=== PATIENT | male | born 2000 | race Two or more races ===

== ENCOUNTER 2024-10-30 23:07 | Inpatient (IN) | payer OTHER, SELFPAY ==
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
[2024-10-30 23:33] VITALS: BP 130/80; BP 130/88; PULSE 59; PULSE 75; RESP 18; TEMP 37.1; O2SAT 100; O2SAT 98; BMI 28.7
--- NOTE | 2024-10-30 23:46 | MHC.EDTECH ---
changed over pt, Belongings are in gene port shelf 1
[2024-10-30 23:57] LABS: MANUAL DIFF FLAG NO
[2024-10-30 23:58] LABS: Basophils Percent Auto 0.4 % (0-2); Eosinophils Absolute Auto 0.1 X10*3/uL (0.0-0.4); Eosinophils Percent Auto 0.9 % (0-4); Hematocrit 45.7 % (42.0-52.0); Hemoglobin 15.9 g/dl (14.0-18.0); Imm Gran Abs Auto 0.02 X10*3/uL (0.00-0.03); Imm Gran Pct Auto 0.3 % (0.0-0.4); Lymphocytes Absolute Auto 2.6 X10*3/uL (1.2-4.9); Lymphocytes Percent Auto 37.6 % (20-40); Mean Corpuscular HGB Conc 34.8 g/dl (31.0-36.0); Mean Corpuscular Hemoglobin 31.9 pg (27.0-33.0); Mean Corpuscular Volume 91.8 fL (80.0-98.0); Mean Platelet Volume 9.2 fL (9.4-12.4); Monocytes Absolute Auto 0.5 X10*3/uL (0.1-1.2); Monocytes Percent Auto 6.5 % (2-11); Neutrophils Absolute Auto 3.7 x10*3/uL (2.0-8.3); Neutrophils Percent Auto 54.3 % (45-73); Platelet Count 253 X10*3/uL (160-400); Red Blood Count 4.98 X10*6/uL (4.60-5.80); Red Cell Distribution Width 13.2 % (11.0-16.0); White Blood Count 6.9 X10*3/uL (4.8-10.8)
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
--- NOTE | 2024-10-31 | ECG_ITS ---
Test Reason : ?ARRHYTHMIA Blood Pressure : */* mmHG Vent. Rate : 64 BPM Atrial Rate : 64 BPM P-R Int : 128 ms QRS Dur : 98 ms QT Int : 380 ms P-R-T Axes : 38 39 19 degrees QTcB Int : 392 ms Normal sinus rhythm Normal ECG No previous ECGs available Referred By: Daron Byers Electronically Signed By: Chon Mojica
--- NOTE | 2024-10-31 | PC.NURSE ---
provided ice pack to presumaably sore area of r hand, dorsal surface
[2024-10-31 00:13] LABS: Amphetamine Screen Urine Not Detected (Not Detect); Barbiturates, Urine Not Detected (Not Detect); Benzodiazepines Screen Urine Not Detected (Not Detect); Buprenorphine Scr Not Detected (Not Detect); Cannabinoid Screen Urine POSITIVE (Not Detect); Cocaine Screen Urine Not Detected (Not Detect); Fentanyl, urine Not Detected (Not Detect); Methadone Screen, Urine Not Detected (Not Detect); Opiate Screen Urine Not Detected (Not Detect); Oxycodone Screen Urine Not Detected (Not Detect); Phencyclidine Screen Urine Not Detected (Not Detect)
[2024-10-31 00:14] LABS: Alanine Aminotransferase 48 U/L (0-40); Albumin Level 4.5 g/dL (3.5-5.0); Alkaline Phosphatase 58 U/L (39-117); Anion Gap 14 (12-20); Aspartate Amino Transferase 40 U/L (5-37); Bilirubin Total 0.3 mg/dL (0.0-1.0); Blood Urea Nitrogen 11 mg/dL (9-16); Calcium 9.1 mg/dL (8.4-10.2); Carbon Dioxide 24 mmol/L (22-29); Chloride 108 mmol/L (96-108); Creatinine Clr Calc Pharmacy 196.7; Estimated Glomerular Filt Rate > 60; Ethanol 109 mg/dL; Glucose Random 104 mg/dL (60-115); Potassium 4.2 mmol/L (3.3-5.1); Sodium 142 mmol/L (135-145); Total Protein 7.6 g/dL (6.5-8.0)
[2024-10-31 00:14] LABS: Acetaminophen LAB < 3 mcg/mL (<30); Salicylate < 5.0 mg/dL (15-30)
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
[2024-10-31 05:42] VITALS: BP 120/66; PULSE 81; RESP 16; TEMP 36.8; O2SAT 98
--- OUTSIDE RECORDS SUMMARY | 2024-10-31 06:43 | XMS_ITS | Clinical Summary ---
Author Organization [facility] Address [address] [place] [id number] Care Team Providers Care Business Excellence Leader Name Role Phone Pcp, No Primary Care Provider Unavailabl e Allergies No known active allergies Social History Tobacco Use Types Packs/Day Years Used Date Smoking Tobacco: Never Assessed Sex and Gender Information Value Date Recorded Sex Assigned at Not on file Legal Sex Male 5:09 PM EDT Gender Identity Not on file Sexual Orientation Not on file Last Filed Vital Signs Vital Sign Reading Time Taken Comments Blood Pressure 132/79 01/11/2019 5:15 PM EDT Pulse 78 01/11/2019 5:15 PM EDT Temperature 37.4 ??C (99.4 ??F) 01/11/2019 5:15 PM ED T Respiratory Rate 18 01/11/2019 5:15 PM EDT Oxygen Saturation 98% 01/11/2019 5:15 PM EDT Inhaled Oxygen Concentration - - Weight - - Height - - Body Mass Index - - Plan of Treatment Health Maintenance Due Date Last Done Comments Hepatitis C Virus Screening 1998 HIV Screening 11/15/2011 HPV Vaccines (1 - Male 3-dos e series) 2013 DTaP/Tdap/Td Vaccines (1 - Tdap) 2017 Hepatitis B Vaccines (1 of 3 - 19+ 3-dose series) 2017 COVID-19 Vaccine ( - 2023-2 5 season) 2024 Pneumococcal Vaccine: Pediat madelin (0-5 Years) and At-Risk Patients (6 to 49 Years) Aged Out No longer eligible b ased on patient's age to complete this topic Care Teams Business Excellence Leader Relationship Specialty Start Date End Date Pcp, No [address] [place] [address] PCP - General 01/11/19
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
[2024-10-31] MEDS: Bacitracin Oint 0.9 GM PACKET 1 APPL TOPICAL (06:58)
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
--- NOTE | 2024-10-31 08:05 | PC.NURSE ---
Pt able to verbally confirm home medications, he reports he last took the medications about two weeks ago
[2024-10-31 08:11] LABS: Appearance Urine Clear; Color Urine Yellow; Glucose Urine UA Negative (Negative); Leukocyte Esterase Urine Negative (Negative); Nitrite Urine Negative (Negative); Urine Blood Negative (Negative); Urine Ketones Negative (Negative); Urine Protein Negative (Neg-Trace)
--- NOTE | 2024-10-31 08:25 | PC.NURSE ---
Pt requesting to be discharged to [facility]NOTE 2] so he can complete homework while being treated. This RN explained to patient that he requires a higher level of care at this time, pt somewhat understanding but continues to remain frustrated, requesting to speak with CARE team clinician. CARE team aware
[2024-10-31] MEDS: Sertraline HCL 25 MG TABLET PO (10:48)
[2024-10-31] MEDS: ALPRAZolam 0.25 MG TABLET PO (10:48)
[2024-10-31] MEDS: Dicyclomine HCl 10 MG CAPSULE PO ×2 (11:24→19:15)
--- NOTE | 2024-10-31 14:35 | PHA.MEDREC ---
Addendum entered by Brianne Bradshaw RPh 10/31/24 14:37: Med rec was reviewed by [facility]. Original Note: Pharmacy Consult ? Medication Reconciliation Pharmacy reviewed med rec done by nursing. Claims match what is confirmed.
[2024-10-31 14:41] VITALS: BP 142/97; PULSE 72; RESP 18; TEMP 37.2; O2SAT 97
[2024-10-31 15:11] VITALS: BMI 27.5
[2024-10-31] MEDS: cloNIDine HCL 0.1 MG TABLET PO ×2 (15:35→21:08)
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
--- NOTE | 2024-10-31 18:48 | PC.NURSE ---
Omid declined to write down contacts when offered.
[2024-10-31 19:51] VITALS: BP 109/53; PULSE 58; RESP 16; TEMP 36.4; O2SAT 98
[2024-10-31 20:45] VITALS: BP 121/61; PULSE 53; RESP 16; TEMP 36.6; O2SAT 98
[2024-11-01] MEDS: Dicyclomine HCl 10 MG CAPSULE PO ×4 (07:28→22:15)
[2024-11-01 08:00] VITALS: BP 138/69; PULSE 63; RESP 16; TEMP 36.6; O2SAT 98
[2024-11-01 08:04] LABS: Estimated Average Glucose 103 mg/dL; Hemoglobin A1C 134.8716 umol/L; Hemoglobin A1c % 5.2 % (<6.0); Total Hemoglobin (HGBA1C) 4111.2944 umol/L
[2024-11-01 08:08] LABS: Cholesterol 157 mg/dL (<200); HDL Cholesterol 60 mg/dL (>40); LDL Cholesterol Calculated 73 mg/dL (<100); Triglycerides 124 mg/dL (<150)
[2024-11-01 08:25] LABS: Free T4 (Free Thyroxine) 1.08 ng/dL (0.71-1.85); Thyroid Stimulating Hormone 1.19 uIU/mL (0.32-4.0)
[2024-11-01] MEDS: Sertraline HCL 50 MG TABLET PO (08:25)
[2024-11-01] MEDS: cloNIDine HCL 0.1 MG TABLET PO ×3 (08:25→22:15)
[2024-11-01 08:34] LABS: Folate 13.4 ng/mL (> or = 4.0); Vitamin B12 326 pg/mL (200-900)
[2024-11-01] MEDS: Magnesium Hydrox/Alum Hydrox 30 ML ORAL.SUSP PO (08:35)
[2024-11-01 12:00] VITALS: BP 130/61; PULSE 70; RESP 18; TEMP 36.8; O2SAT 99
--- NOTE | 2024-11-01 15:16 | HO.PSYCHPN ---
Subjective Subjective Date of Service: 11/01/24 Reason For Visit: Mood Disorder Interim History: Active on unit, social with peers. rapid speech. focused on discharge and his courses at college. Pt reports he is feeling less anxious today. attending groups. denies SI/HI/VH/AH. denies withdrawal symptoms. Continue current tx plan. Medication Compliance: Yes Side effects from medications: No Attending Groups: Yes Mental Status Exam Mental Status Exam Patient Appearance: Well Grooomed Patient Orientation: Person, Place, Time and Situation Level of Consciousness: Awake and Alert Patient Behavior: Appropriate, Cooperative and Good Eye Contact Mood Description: Anxious Affect Description: Anxious Ability to Follow Directions: Good Speech Pattern: Clear and Rapid Memory Description: Intact Hallucinations: None Delusions: Not Present Thought Process: Intact and Goal Oriented Thought Content: positive for Intact Diagnostics Vital Signs (24Hr): Vital Signs - 24 hr 10/31/24 19:51 10/31/24 20:45 11/01/24 08:00 Temperature 97.6 F 97.8 F 98 F Pulse Rate 58 53 63 Respiratory Rate 16 16 16 Blood Pressure 109/53 L 121/61 138/69 Pulse Oximetry 98 98 98 Oxygen Delivery Method Room Air Room Air Room Air 11/01/24 12:00 Temperature 98.2 F Pulse Rate 70 Respiratory Rate 18 Blood Pressure 130/61 Pulse Oximetry 99 Oxygen Delivery Method Room Air BMI result Body Mass Index 27.5 Labs 10/30/24 23:50 10/30/24 23:50 Labs: Laboratory Results - last 48 hr 10/30/24 10/30/24 11/01/24 23:50 23:51 07:30 WBC 6.9 RBC 4.98 Hgb 15.9 Hct 45.7 MCV 91.8 MCH 31.9 MCHC 34.8 RDW 13.2 Plt Count 253 MPV 9.2 L Immature Gran % (Auto) 0.3 Neut % (Auto) 54.3 Lymph % (Auto) 37.6 [place] % (Auto) 6.5 Eos % (Auto) 0.9 Baso % (Auto) 0.4 Lymph # (Auto) 2.6 [place] # (Auto) 0.5 Eos # (Auto) 0.1 Baso # (Auto) 0.0 Abs Immat Gran (auto) 0.02 Absolute Neuts (auto) 3.7 Absolute Nucleated RBC 0.000 Nucleated RBC % (auto) 0.0 Sodium 142 Potassium 4.2 Chloride 108 Carbon Dioxide 24 Anion Gap 14 BUN 11 Creatinine 0.65 Estim Creat Clear Calc 196.7 Estimated GFR > 60 Random Glucose 104 Estimat Average Glucose 103 Hemoglobin A1c % 5.2 Calcium 9.1 Total Bilirubin 0.3 AST 40 H ALT 48 H Alkaline Phosphatase 58 Total Protein 7.6 Albumin 4.5 Triglycerides 124 Cholesterol 157 LDL Cholesterol, Calc 73 HDL Cholesterol 60 Vitamin B12 326 Folate 13.4 TSH 1.19 Free T4 1.08 Urine Color Yellow Urine Appearance Clear Urine pH 6.0 Ur Specific [place] 1.010 Urine Protein Negative Urine Glucose (UA) Negative Urine Ketones Negative Urine Blood Negative Urine Nitrite Negative Ur Leukocyte Esterase Negative Salicylates < 5.0 L Urine Opiates Screen Not Detected Ur Buprenorphine Scrn Not Detected Ur Oxycodone Screen Not Detected Urine Methadone Screen Not Detected Urine Fentanyl Screen Not Detected Acetaminophen < 3 Ur Barbiturates Screen Not Detected Ur Phencyclidine Scrn Not Detected Ur Amphetamines Screen Not Detected U Benzodiazepines Scrn Not Detected Urine Cocaine Screen Not Detected U Marijuana (THC) Screen POSITIVE H Ethyl Alcohol 109 Medications Medications Current Medications Acetaminophen (Acetaminophen 325 Mg Tablet) 650 mg PO Q6H PRN PRN Reason: Headache/Pain, Scale 1-10 Al Hydroxide/Mg Hydroxide (Magnesium Hydrox/Alum Hydrox 30 Ml Oral.Susp) 30 ml PO Q6H PRN PRN Reason: Heartburn/Nausea Last Admin: 11/01/24 08:35 Dose: 30 ml Clonidine HCl (Clonidine Hcl 0.1 Mg Tablet) 0.1 mg PO TID [facility]; Protocol Last Admin: 11/01/24 08:25 Dose: 0.1 mg Dicyclomine HCl (Dicyclomine Hcl 10 Mg Capsule) 10 mg PO TIDAC [facility] Last Admin: 11/01/24 12:36 Dose: 10 mg Hydroxyzine HCl (Hydroxyzine Hcl 25 Mg Tablet) 25 mg PO Q6H PRN PRN Reason: mild anxiety Lorazepam (Lorazepam 1 Mg Tablet) 1 mg PO Q2H PRN PRN Reason: CIWA 8-11 Lorazepam (Lorazepam 1 Mg Tablet) 2 mg PO Q2H PRN PRN Reason: CIWA 12-15 Lorazepam (Lorazepam 1 Mg Tablet) 3 mg PO Q2H PRN PRN Reason: CIWA > 15, and call Magnesium Hydroxide (Milk Of Magnesia 30 Ml Oral.Susp) 30 ml PO DAILY PRN PRN Reason: Constipation Nicotine Polacrilex (Nicotine Polacrilex 2 Mg Gum) 4 mg BUCCAL Q2H PRN PRN Reason: Nicotine Cravings Sertraline HCl (Sertraline Hcl 50 Mg Tablet) 50 mg PO DAILY [facility] Last Admin: 11/01/24 08:25 Dose: 50 mg Trazodone HCl (Trazodone Hcl 50 Mg Tablet) 50 mg PO BEDTIME MRX1 PRN PRN Reason: Insomnia Allergies Allergies Allergy/AdvReac Type Severity Reaction Status Date / Time No Known Allergies Allergy Verified 10/30/24 23:41 Assessment & Plan Assessment & Plan (1) Anxiety disorder: Status: Acute Code(s): F41.9 - Anxiety disorder, unspecified (2) Alcohol use disorder: Status: Acute Code(s): F10.90 - Alcohol use, unspecified, uncomplicated Plan DDx: PTSD, OCD, bipolar disorder; AUD increase sertraline to 50 mg daily. start clonidine 0.1 mg TID ativan per [facility] for alcohol use disorder offer naltrexone prior to discharge referral for psych MD and to AA at discharge 11/01: Active on unit, social with peers. rapid speech. focused on discharge and his courses at college. Pt reports he is feeling less anxious today. attending groups. denies SI/HI/VH/AH. denies withdrawal symptoms. Continue current tx plan. Patient educated on: diagnosis and medication risk/benefits Reason for continued inpatient stay Substantial Risk for: med/psych decompensation Time Spent With Patient Time: Total time managing care of this patient today _20___ minutes.
[2024-11-01 15:33] VITALS: BP 123/75
[2024-11-01 16:00] VITALS: BP 138/74; PULSE 69; RESP 18; TEMP 36.6; O2SAT 98
[2024-11-01 19:04] VITALS: BP 111/65; PULSE 60; RESP 16; TEMP 36.6; O2SAT 96
[2024-11-01 22:15] VITALS: BP 123/81
[2024-11-01] MEDS: Melatonin 3 MG TABLET 9 MG PO (22:15)
[2024-11-02] MEDS: Dicyclomine HCl 10 MG CAPSULE PO ×3 (06:44→16:26)
[2024-11-02 07:41] VITALS: BP 109/65; PULSE 59; RESP 16; TEMP 36.3; O2SAT 97
[2024-11-02] MEDS: Sertraline HCL 50 MG TABLET PO (08:15)
[2024-11-02] MEDS: cloNIDine HCL 0.1 MG TABLET PO ×3 (08:15→22:18)
--- NOTE | 2024-11-02 09:21 | HO.PSYCHPN ---
Subjective Subjective Date of Service: 11/02/24 Reason For Visit: Mood Disorder Interim History: Active on unit, social with peers. rapid speech. focused on discharge. Pt reports he is feeling more calm ; pt stated, I feel like my stomach is getting better . denies SI/HI/VH/AH. Continues to deny withdrawal symptoms. Continue current tx plan. Medication Compliance: Yes Side effects from medications: No Attending Groups: Yes Mental Status Exam Mental Status Exam Patient Appearance: Well Grooomed Patient Orientation: Person, Place, Time and Situation Level of Consciousness: Awake and Alert Patient Behavior: Appropriate, Cooperative and Good Eye Contact Mood Description: Calm Affect Description: Anxious Ability to Follow Directions: Good Speech Pattern: Clear and Rapid Memory Description: Intact Hallucinations: None Delusions: Not Present Thought Process: Intact Thought Content: positive for Intact Diagnostics Vital Signs (24Hr): Vital Signs - 24 hr 11/01/24 12:00 11/01/24 15:33 11/01/24 16:00 Temperature 98.2 F 97.9 F Pulse Rate 70 69 Respiratory Rate 18 18 Blood Pressure 130/61 123/75 138/74 Pulse Oximetry 99 98 Oxygen Delivery Method Room Air Room Air 11/01/24 19:04 11/01/24 22:15 11/02/24 07:41 Temperature 97.8 F 97.4 F Pulse Rate 60 59 Respiratory Rate 16 16 Blood Pressure 111/65 123/81 109/65 Pulse Oximetry 96 97 Oxygen Delivery Method Room Air Room Air BMI result Body Mass Index 27.5 Labs 10/30/24 23:50 10/30/24 23:50 Labs: Laboratory Results - last 48 hr 11/01/24 07:30 Estimat Average Glucose 103 Hemoglobin A1c % 5.2 Triglycerides 124 Cholesterol 157 LDL Cholesterol, Calc 73 HDL Cholesterol 60 Vitamin B12 326 Folate 13.4 TSH 1.19 Free T4 1.08 Medications Medications Current Medications Acetaminophen (Acetaminophen 325 Mg Tablet) 650 mg PO Q6H PRN PRN Reason: Headache/Pain, Scale 1-10 Al Hydroxide/Mg Hydroxide (Magnesium Hydrox/Alum Hydrox 30 Ml Oral.Susp) 30 ml PO Q6H PRN PRN Reason: Heartburn/Nausea Last Admin: 11/01/24 08:35 Dose: 30 ml Clonidine HCl (Clonidine Hcl 0.1 Mg Tablet) 0.1 mg PO TID [facility]; Protocol Last Admin: 11/02/24 08:15 Dose: 0.1 mg Dicyclomine HCl (Dicyclomine Hcl 10 Mg Capsule) 10 mg PO TIDAC [facility] Last Admin: 11/02/24 06:44 Dose: 10 mg Hydroxyzine HCl (Hydroxyzine Hcl 25 Mg Tablet) 25 mg PO Q6H PRN PRN Reason: mild anxiety Lorazepam (Lorazepam 1 Mg Tablet) 1 mg PO Q2H PRN PRN Reason: CIWA 8-11 Lorazepam (Lorazepam 1 Mg Tablet) 2 mg PO Q2H PRN PRN Reason: CIWA 12-15 Lorazepam (Lorazepam 1 Mg Tablet) 3 mg PO Q2H PRN PRN Reason: CIWA > 15, and call MD Magnesium Hydroxide (Milk Of Magnesia 30 Ml Oral.Susp) 30 ml PO DAILY PRN PRN Reason: Constipation Melatonin (Melatonin 3 Mg Tablet) 9 mg PO BEDTIME PRN PRN Reason: Insomnia Last Admin: 11/01/24 22:15 Dose: 9 mg Nicotine Polacrilex (Nicotine Polacrilex 2 Mg Gum) 4 mg BUCCAL Q2H PRN PRN Reason: Nicotine Cravings Sertraline HCl (Sertraline Hcl 50 Mg Tablet) 50 mg PO DAILY [facility] Last Admin: 11/02/24 08:15 Dose: 50 mg Trazodone HCl (Trazodone Hcl 50 Mg Tablet) 50 mg PO BEDTIME MRX1 PRN PRN Reason: Insomnia Allergies Allergies Allergy/AdvReac Type Severity Reaction Status Date / Time No Known Allergies Allergy Verified 10/30/24 23:41 Assessment & Plan Assessment & Plan (1) Anxiety disorder: Status: Acute Code(s): F41.9 - Anxiety disorder, unspecified (2) Alcohol use disorder: Status: Acute Code(s): F10.90 - Alcohol use, unspecified, uncomplicated Plan DDx: PTSD, OCD, bipolar disorder; AUD increase sertraline to 50 mg daily. start clonidine 0.1 mg TID ativan per [facility] for alcohol use disorder offer naltrexone prior to discharge referral for psych MD and to AA at discharge 11/01: Active on unit, social with peers. rapid speech. focused on discharge and his courses at college. Pt reports he is feeling less anxious today. attending groups. denies SI/HI/VH/AH. denies withdrawal symptoms. Continue current tx plan. 11/02: rapid speech. focused on discharge. Pt reports he is feeling more calm ; pt stated, I feel like my stomach is getting better . denies SI/HI/VH/AH. Continues to deny withdrawal symptoms. Continue current tx plan. Patient educated on: diagnosis and medication risk/benefits Reason for continued inpatient stay Substantial Risk for: med/psych decompensation Time Spent With Patient Time: Total time managing care of this patient today _20___ minutes.
[2024-11-02 14:25] VITALS: BP 144/69; PULSE 72
[2024-11-02 19:13] VITALS: BP 113/61; PULSE 54; RESP 16; TEMP 36.7; O2SAT 97
[2024-11-02] MEDS: Melatonin 3 MG TABLET 9 MG PO (22:17)
[2024-11-02 22:18] VITALS: BP 116/74
[2024-11-03] MEDS: Dicyclomine HCl 10 MG CAPSULE PO ×3 (07:05→15:52)
[2024-11-03 08:03] VITALS: BP 119/74; PULSE 60; RESP 18; TEMP 36.2; O2SAT 99
[2024-11-03] MEDS: Sertraline HCL 50 MG TABLET PO (08:14)
[2024-11-03] MEDS: cloNIDine HCL 0.1 MG TABLET PO ×3 (08:15→22:31)
--- NOTE | 2024-11-03 08:49 | HO.PSYCHPN ---
Subjective Subjective Date of Service: 11/03/24 Reason For Visit: Mood Disorder Interim History: rapid speech. focused on discharge. Patient reports improved mood; pt stated, I feel at peace . social with peers. denies SI/HI/VH/AH. continues to deny withdrawal symptoms; DC [facility]. Continue current tx plan. Medication Compliance: Yes Side effects from medications: No Attending Groups: Yes Mental Status Exam Mental Status Exam Patient Appearance: Well Grooomed Patient Orientation: Person, Place, Time and Situation Level of Consciousness: Awake and Alert Patient Behavior: Appropriate, Cooperative and Good Eye Contact Mood Description: Anxious Affect Description: Anxious Ability to Follow Directions: Good Speech Pattern: Clear and Rapid Memory Description: Intact Hallucinations: None Delusions: Not Present Thought Process: Intact Thought Content: positive for Intact Diagnostics Vital Signs (24Hr): Vital Signs - 24 hr 11/02/24 14:25 11/02/24 19:13 11/02/24 22:18 Temperature 98.0 F Pulse Rate 72 54 Respiratory Rate 16 Blood Pressure 144/69 H 113/61 116/74 Pulse Oximetry 97 Oxygen Delivery Method Room Air 11/03/24 08:03 Temperature 97.1 F Pulse Rate 60 Respiratory Rate 18 Blood Pressure 119/74 Pulse Oximetry 99 Oxygen Delivery Method Room Air BMI result Body Mass Index 27.5 Labs 10/30/24 23:50 10/30/24 23:50 Medications Medications Current Medications Acetaminophen (Acetaminophen 325 Mg Tablet) 650 mg PO Q6H PRN PRN Reason: Headache/Pain, Scale 1-10 Al Hydroxide/Mg Hydroxide (Magnesium Hydrox/Alum Hydrox 30 Ml Oral.Susp) 30 ml PO Q6H PRN PRN Reason: Heartburn/Nausea Last Admin: 11/01/24 08:35 Dose: 30 ml Clonidine HCl (Clonidine Hcl 0.1 Mg Tablet) 0.1 mg PO TID [facility]; Protocol Last Admin: 11/03/24 08:15 Dose: 0.1 mg Dicyclomine HCl (Dicyclomine Hcl 10 Mg Capsule) 10 mg PO TIDAC [facility] Last Admin: 11/03/24 07:05 Dose: 10 mg Hydroxyzine HCl (Hydroxyzine Hcl 25 Mg Tablet) 25 mg PO Q6H PRN PRN Reason: mild anxiety Lorazepam (Lorazepam 1 Mg Tablet) 1 mg PO Q2H PRN PRN Reason: CIWA 8-11 Lorazepam (Lorazepam 1 Mg Tablet) 2 mg PO Q2H PRN PRN Reason: CIWA 12-15 Lorazepam (Lorazepam 1 Mg Tablet) 3 mg PO Q2H PRN PRN Reason: CIWA > 15, and call MD Magnesium Hydroxide (Milk Of Magnesia 30 Ml Oral.Susp) 30 ml PO DAILY PRN PRN Reason: Constipation Melatonin (Melatonin 3 Mg Tablet) 9 mg PO BEDTIME PRN PRN Reason: Insomnia Last Admin: 11/02/24 22:17 Dose: 9 mg Nicotine Polacrilex (Nicotine Polacrilex 2 Mg Gum) 4 mg BUCCAL Q2H PRN PRN Reason: Nicotine Cravings Sertraline HCl (Sertraline Hcl 50 Mg Tablet) 50 mg PO DAILY [facility] Last Admin: 11/03/24 08:14 Dose: 50 mg Trazodone HCl (Trazodone Hcl 50 Mg Tablet) 50 mg PO BEDTIME MRX1 PRN PRN Reason: Insomnia Allergies Allergies Allergy/AdvReac Type Severity Reaction Status Date / Time No Known Allergies Allergy Verified 10/30/24 23:41 Assessment & Plan Assessment & Plan (1) Anxiety disorder: Status: Acute Code(s): F41.9 - Anxiety disorder, unspecified (2) Alcohol use disorder: Status: Acute Code(s): F10.90 - Alcohol use, unspecified, uncomplicated Plan DDx: PTSD, OCD, bipolar disorder; AUD increase sertraline to 50 mg daily. start clonidine 0.1 mg TID ativan per [facility] for alcohol use disorder offer naltrexone prior to discharge referral for psych MD and to AA at discharge 11/01: Active on unit, social with peers. rapid speech. focused on discharge and his courses at college. Pt reports he is feeling less anxious today. attending groups. denies SI/HI/VH/AH. denies withdrawal symptoms. Continue current tx plan. 11/02: rapid speech. focused on discharge. Pt reports he is feeling more calm ; pt stated, I feel like my stomach is getting better . denies SI/HI/VH/AH. Continues to deny withdrawal symptoms. Continue current tx plan. 11/03: DC CIWA. continue tx plan. Patient educated on: diagnosis, medication risk/benefits and therapeutic strategies Reason for continued inpatient stay Substantial Risk for: med/psych decompensation Time Spent With Patient Time: Total time managing care of this patient today _20___ minutes.
--- NOTE | 2024-11-03 11:35 | MHC.CLN ---
NUTRITION CONSULT-ROUTINE. PATIENT REPORTED TO [facility] THAT LOST 8# LAST MONTH. BMI=27.5. ANTICIPATE IMPROVED APPETITE IN CONTROLLED ENVIRONMENT. PLEASE CONSULT RD IF POOR PO.
[2024-11-03 14:34] VITALS: BP 114/77
[2024-11-03 20:00] VITALS: BP 124/58; PULSE 63; RESP 16; TEMP 36.3; O2SAT 97
[2024-11-03 22:31] VITALS: BP 120/57
[2024-11-04] MEDS: Dicyclomine HCl 10 MG CAPSULE PO ×3 (06:47→16:21)
[2024-11-04 08:00] VITALS: BP 119/60; PULSE 61; TEMP 36.8; O2SAT 99
[2024-11-04] MEDS: Sertraline HCL 50 MG TABLET PO (08:26)
[2024-11-04] MEDS: cloNIDine HCL 0.1 MG TABLET PO ×3 (08:26→21:04)
--- NOTE | 2024-11-04 15:55 | P.PNPSI_ITS ---
Subjective Subjective Date of Service: 11/04/24 Reason For Visit: Mood Disorder Interim History: very rapid speech but appearing calm. says he is anxious but sleeping well. i don't crave anything. making legal threats against hospital, saying his mother is a doctor PhD and his father is a navy tube drawing supervisor and he is going [facility]. 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 he doesn't understand why he can't be discharged immediately, he's not like the rest of these people. he's not been aggressive or violent. per staff, 3-day up 11/06. taking meds and meals. feeling better. denies cravings. concerned about OCD. Mental Status Exam Mental Status Exam Narrative: adequately dressed and groomed. wearing hospital attire. cooperative. fidgety, very rapid speech. no PMA/PMR noted. speech incr rate, amount. nml loudness, decr latency. thoughts digressive. affect constricted, hyper- intense, non-labile. mood anxious. no SI/HI/AVH expressed. Diagnostics Vital Signs (24Hr): Vital Signs - 24 hr 11/03/24 20:00 11/03/24 22:31 11/04/24 08:00 Temperature 97.3 F 98.2 F Pulse Rate 63 61 Respiratory Rate 16 Blood Pressure 124/58 L 120/57 L 119/60 Pulse Oximetry 97 99 Oxygen Delivery Method Room Air Room Air BMI result Body Mass Index 27.5 Labs 10/30/24 23:50 10/30/24 23:50 Medications Medications Current Medications Acetaminophen (Acetaminophen 325 Mg Tablet) 650 mg PO Q6H PRN PRN Reason: Headache/Pain, Scale 1-10 Al Hydroxide/Mg Hydroxide (Magnesium Hydrox/Alum Hydrox 30 Ml Oral.Susp) 30 ml PO Q6H PRN PRN Reason: Heartburn/Nausea Last Admin: 11/01/24 08:35 Dose: 30 ml Clonidine HCl (Clonidine Hcl 0.1 Mg Tablet) 0.1 mg PO TID [facility]; Protocol Last Admin: 11/04/24 08:26 Dose: 0.1 mg Dicyclomine HCl (Dicyclomine Hcl 10 Mg Capsule) 10 mg PO TIDAC [facility] Last Admin: 11/04/24 12:55 Dose: 10 mg Hydroxyzine HCl (Hydroxyzine Hcl 25 Mg Tablet) 25 mg PO Q6H PRN PRN Reason: mild anxiety Magnesium Hydroxide (Milk Of Magnesia 30 Ml Oral.Susp) 30 ml PO DAILY PRN PRN Reason: Constipation Melatonin (Melatonin 3 Mg Tablet) 9 mg PO BEDTIME PRN PRN Reason: Insomnia Last Admin: 11/02/24 22:17 Dose: 9 mg Nicotine Polacrilex (Nicotine Polacrilex 2 Mg Gum) 4 mg BUCCAL Q2H PRN PRN Reason: Nicotine Cravings Sertraline HCl (Sertraline Hcl 50 Mg Tablet) 50 mg PO DAILY [facility] Last Admin: 11/04/24 08:26 Dose: 50 mg Trazodone HCl (Trazodone Hcl 50 Mg Tablet) 50 mg PO BEDTIME MRX1 PRN PRN Reason: Insomnia Allergies Allergies Allergy/AdvReac Type Severity Reaction Status Date / Time No Known Allergies Allergy Verified 10/30/24 23:41 Assessment & Plan Assessment & Plan (1) Anxiety disorder: Status: Acute Code(s): F41.9 - Anxiety disorder, unspecified (2) Alcohol use disorder: Status: Acute Code(s): F10.90 - Alcohol use, unspecified, uncomplicated Plan DDx: PTSD, OCD, bipolar disorder; AUD 10/31: increase sertraline to 50 mg daily. start clonidine 0.1 mg TID. ativan per [facility] for alcohol use disorder. offer naltrexone prior to discharge. referral for psych MD and to AA at discharge. 11/01: Active on unit, social with peers. rapid speech. focused on discharge and his courses at college. Pt reports he is feeling less anxious today. attending groups. denies SI/HI/VH/AH. denies withdrawal symptoms. Continue current tx plan. 11/02: rapid speech. focused on discharge. Pt reports he is feeling more calm ; pt stated, I feel like my stomach is getting better . denies SI/HI/VH/AH. Continues to deny withdrawal symptoms. Continue current tx plan. 11/03: [facility]. continue tx plan. 11/04: continues with rapid speech. seemingly more irritable today, demanding discharge and threatening legal action against the hospital. asking for cyber legal advisor numbers, which were provided. states he has no cravings. continue to observe. some concern pt may have bipolar diathesis after all and increased dose of sertraline along with cessation of chronic heavy alcohol consumption are activating him. 3-day expires 11/06. Reason for continued inpatient stay Substantial Risk for: harm to self and rapid decompensation Time Spent With Patient Time: Total time managing care of this patient today __25__ minutes.
[2024-11-04 16:19] VITALS: BP 149/92; PULSE 66; RESP 16; O2SAT 97
[2024-11-04 20:00] VITALS: BP 109/62; PULSE 60; RESP 16; TEMP 36.8; O2SAT 99
[2024-11-04 21:04] VITALS: BP 109/62
[2024-11-05] MEDS: Dicyclomine HCl 10 MG CAPSULE PO ×3 (06:46→16:36)
[2024-11-05 07:15] VITALS: BP 111/55; PULSE 55; RESP 16; TEMP 36.8; O2SAT 99
[2024-11-05 08:27] VITALS: BP 132/78
[2024-11-05] MEDS: cloNIDine HCL 0.1 MG TABLET PO ×3 (08:27→21:41)
[2024-11-05] MEDS: Sertraline HCL 50 MG TABLET PO (08:27)
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
[2024-11-05] MEDS: Naltrexone HCl 50 MG TABLET PO (12:07)
[2024-11-05 15:11] VITALS: BP 116/63
[2024-11-05 19:30] VITALS: BP 114/63; PULSE 50; RESP 16; TEMP 36.9; O2SAT 99
[2024-11-05 21:41] VITALS: BP 118/67
[2024-11-06] MEDS: Dicyclomine HCl 10 MG CAPSULE PO (06:54)
[2024-11-06 07:57] VITALS: BP 124/69; PULSE 51; RESP 16; TEMP 36.9; O2SAT 98
[2024-11-06] MEDS: Sertraline HCL 50 MG TABLET PO (08:10)
[2024-11-06] MEDS: Naltrexone HCl 50 MG TABLET PO (08:10)
[2024-11-06] MEDS: cloNIDine HCL 0.1 MG TABLET PO (08:10)
== END 2024-11-06 10:23 | disposition home or self-care (01) | DRG 756 ==
LOC: HO.ED 10-31 07:06 → HO.PADLT16 10-31 13:11
PROVIDERS: Emergency Medicine; Admitting Provider Psychiatry & Neurology Psychiatry; Emergency Provider Emergency Medicine; Visit Provider Psychiatry & Neurology Psychiatry
DX: F41.9 Anxiety disorder, unspecified (principal); F10.90 Alcohol use, unspecified, uncomplicated; Z87.891 Personal history of nicotine dependence; Y90.5 Blood alcohol level of 100-119 mg/100 ml
CPT/HCPCS: 36415; 73120; 80053; 80061; 80143; 80179; 80307; 81003; 82607; 82746; 83036; 84439; 84443; 85025; 93005; 99285; S9485

== ENCOUNTER → 2024-10-31 00:16 | Outpatient (BNV) | payer MEDICAID, SELFPAY | PROVIDERS: Emergency Provider Emergency Medicine; Visit Provider Radiology Diagnostic Radiology | DX: S60.221A Contusion of right hand, initial encounter (principal); W22.8XXA Striking against or struck by other objects, initial encounter | CPT/HCPCS: 73120 ==

== ENCOUNTER 2024-10-31 13:08 | Outpatient (BNV) | payer MEDICAID, SELFPAY | END 2024-10-31 15:45 | PROVIDERS: Admitting Provider Psychiatry & Neurology Psychiatry; Emergency Provider Emergency Medicine; Visit Provider Internal Medicine Cardiovascular Disease | DX: Z13.6 Encounter for screening for cardiovascular disorders (principal) | CPT/HCPCS: 93010 ==

== ENCOUNTER → 2024-10-31 13:08 | Outpatient (BNV) | payer OTHER, SELFPAY | PROVIDERS: Admitting Provider Psychiatry & Neurology Psychiatry; Emergency Provider Emergency Medicine; Visit Provider Psychiatry & Neurology Psychiatry | DX: F41.9 Anxiety disorder, unspecified (principal); F10.90 Alcohol use, unspecified, uncomplicated | CPT/HCPCS: 99231; 99232; 99233 ==